=== PATIENT | male | born 1955 | race Caucasian/White ===

== ENCOUNTER → 2016-12-06 | Outpatient (REF) | payer MEDICARE, OTHER ==
[~2016-12-06] MED LIST: /DULO30CA PO; /FEXO18TA PO; /PANT40TA PO; /WARF5TA OR; ACET65TA OR; ALBU17IN2 INH; ALLO300T2 PO; ASPI1TAB24 PO; ASPI81TA83 PO; ASPI81TA85 PO; Aleve PO; BENI20TA3 PO; COLC0.6T34 PO; COUM1TAB17 PO; COUM2.5T11 PO; DULE200A INH; DULO1CAP2 PO; FLOM5CAP PO; FOLI1TAB86 PO; GABA300C2 PO; GABA300C3 PO; GABA600T3 PO; LACT10SO15 PO; LACTSOL16 XX; LEVO25TA5 PO; LEVOPOW21 OR; LEVOTAB10 PO; METH2.5T PO; MULT1TAB10 PO; MULTCAP11 PO; NAPR500T2 PO; PERC5TAB8 OR; PROBCAP4 PO; PROC2.5C PR; PROT1TAB2 PO; Preparation H TOP; REST0.05 OU; TAMS0.4C PO; TRAM50TA2 PO; VIAG100T PO; VITA200038 PO; ZYLO300T4 PO; [UNRECOGNIZED DRUG - CODE] PO; allegra OR; gabapentin OR; proctosol PR; restasis OU; tramadol OR
[2016-12-06 12:50] LABS: URIC ACID 6.4 MG/DL (3.5-7.2)
[2016-12-06 13:11] LABS: FOLATE > 24.0 NG/ML (>5.4); VITAMIN B12 LEVEL 832 PG/ML (247-911)
== END ==
LOC: M LAB REF 11:51
PROVIDERS: ATTEND Internal Medicine
DX: M10.9 Gout, unspecified (principal); M60.9 Myositis, unspecified

== ENCOUNTER → 2017-04-18 | Outpatient (CLI) | payer MEDICARE, BC, OTHER ==
[~2017-04-18] VITALS: Ht 180.3 cm; Wt 108.9 kg
[~2017-04-18] MED LIST changes: +ASPI-161 PO; +ASPI1TAB PO; -ASPI1TAB24 PO; +BENI20TA18 PO; -BENI20TA3 PO; +BENI40TA28 PO; -COUM2.5T11 PO; +COUM2.5T17 PO; +GABA-282 PO; -GABA300C3 PO; -NAPR500T2 PO; +NAPR500T3 PO; +NS 1,000 ML IV ONE; +PROPOFOL 200 MG/20 ML VIAL As Ordered ONE
--- NOTE | 2017-04-18 11:33 | ROOR ---
Patient Name: Parrish Rodriguez Procedure Date: 04/18/2017 10:57 AM Date of : 1955 Age: 61 Room: [facility] Gender: Male Note Status: Finalized Procedure: Total Colonoscopy to Cecum Indications: Screening for colorectal malignant neoplasm Providers: Deangelo Patel MD Referring MD: KELSEY MIX JR, MD Requesting Provider: Medicines: Monitored Anesthesia Care Complications: No immediate complications. Procedure: Pre-Anesthesia Assessment: - The heart rate, respiratory rate, oxygen saturations, blood pressure, adequacy of pulmonary ventilation, and response to care were monitored throughout the procedure. The Colonoscope was introduced through the anus and advanced to the cecum, identified by appendiceal orifice and ileocecal valve. The colonoscopy was performed without difficulty. The patient tolerated the procedure well. The quality of the bowel preparation was excellent. Findings: The perianal and digital rectal examinations were normal. Non-bleeding internal hemorrhoids were found during retroflexion. The hemorrhoids were small and Grade I (internal hemorrhoids that do not prolapse). The exam was otherwise without abnormality on direct and retroflexion views. Impression: - Non-bleeding internal hemorrhoids. - The examination was otherwise normal on direct and retroflexion views. - No specimens collected. - The exam was otherwise normal to the cecum. Recommendation: - Patient has a contact number available for emergencies. The signs and symptoms of potential delayed complications were discussed with the patient. Return to normal activities tomorrow. Written discharge instructions were provided to the patient. - High fiber diet. - Discharge patient to home. - Continue present medications. - Repeat colonoscopy in 10 years for screening purposes. - Return to referring physician. - The findings and recommendations were discussed with the patient's family. Deangelo Patel MD Deangelo Patel MD 04/18/2017 11:33:10 AM This report has been signed electronically. Number of Addenda: 0 Note Initiated On: 04/18/2017 10:57 AM Estimated Blood Loss: Estimated blood loss: none.
[2017-04-18 12:14] VITALS: BP 138/81
== END | disposition home or self-care (01) ==
LOC: M OPP 09:59
PROVIDERS: ATTEND Internal Medicine Gastroenterology
DX: Z12.11 Encounter for screening for malignant neoplasm of colon (principal); K64.0 First degree hemorrhoids; I10 Essential (primary) hypertension; M10.9 Gout, unspecified; E03.9 Hypothyroidism, unspecified; R12 Heartburn; M19.90 Unspecified osteoarthritis, unspecified site; M25.60 Stiffness of unspecified joint, not elsewhere classified; G62.9 Polyneuropathy, unspecified; G47.30 Sleep apnea, unspecified; R06.83 Snoring; R06.02 Shortness of breath; C85.90 Non-Hodgkin lymphoma, unspecified, unspecified site; Z92.21 Personal history of antineoplastic chemotherapy; Z92.3 Personal history of irradiation; Z80.9 Family history of malignant neoplasm, unspecified; Z79.82 Long term (current) use of aspirin; Z79.899 Other long term (current) drug therapy

== ENCOUNTER → 2017-12-15 | Outpatient (REF) | payer MEDICARE, BC, OTHER ==
[2017-12-15 14:04] LABS: URIC ACID 5.4 MG/DL (3.5-7.2)
[2017-12-15 14:10] LABS: FOLATE 17.4 NG/ML; VITAMIN B12 LEVEL > 2000 PG/ML
== END ==
LOC: M LAB REF 13:36
DX: D64.9 Anemia, unspecified (principal); M10.9 Gout, unspecified
CPT/HCPCS: 82746

== ENCOUNTER → 2018-06-18 | Outpatient (REF) | payer MEDICARE, BC, OTHER ==
[2018-06-18 18:56] LABS: CORTISOL AM 8.8 UG/DL (4.3-22.4)
[2018-06-18 19:54] LABS: OSMOLALITY URINE 291 MOSM/KG (500-800)
[2018-06-18 20:25] LABS: OSMOLALITY SERUM 284 MOSM/KG (280-301)
== END ==
LOC: M LAB REF 16:56
DX: E87.1 Hypo-osmolality and hyponatremia (principal); I10 Essential (primary) hypertension
CPT/HCPCS: 83930

== ENCOUNTER 2018-08-31 06:09 | Emergency (ER) | payer MEDICARE, BC, OTHER ==
[2018-08-31 06:35] LABS: BASO # 0.1 10^3/uL (0.0-0.2); BASO % 0.4 % (0.0-1.0); EOS % 0.2 % (0.0-3.0); HEMATOCRIT 43.8 % (42.0-52.0); IMMATURE GRANULOCYTE % 0.5 % (0-3.0); LYMPH # 1.3 10^3/uL (1.5-4.5); LYMPH % 9.7 % (24.0-44.0); MEAN CORPUSCULAR HEMOGLOBIN 33.5 pg (27.0-33.0); MEAN CORPUSCULAR HGB CONC 34.2 g/dl (32.0-36.5); MEAN CORPUSCULAR VOLUME 97.8 fl (80.0-96.0); MONO # 0.5 10^3/uL (0.0-0.8); MONO % 3.9 % (0.0-5.0); NEUTROPHILS % 85.3 % (36.0-66.0); PLATELET COUNT, AUTOMATED 301 10^3/uL (150-450); RED BLOOD COUNT 4.48 10^6/uL (4.30-6.10); RED CELL DISTRIBUTION WIDTH 12.8 % (11.5-14.5); WHITE BLOOD COUNT 12.9 10^3/uL (4.0-10.0)
[2018-08-31] MEDS: NS 1,000 ML IV ×2 (06:55→07:16)
[2018-08-31] MEDS: MORPHINE 4 MG/ML 1ML VIAL/SYRINGE (J2270) IV ×2 (07:16→07:46)
[2018-08-31] MEDS: ONDANSETRON 4MG/2ML VIAL (J2405) IV (07:16)
[2018-08-31 07:18] LABS: ALBUMIN 4.3 GM/DL (3.2-5.2); ALBUMIN/GLOBULIN RATIO 1.08 (1.00-1.93); ALKALINE PHOSPHATASE 113 U/L (45-117); ALT/SGPT 78 U/L (12-78); ANION GAP 14 MEQ/L (8-16); AST/SGOT 64 U/L (7-37); BILIRUBIN,DIRECT 0.1 MG/DL (0.0-0.2); BILIRUBIN,TOTAL 0.5 MG/DL (0.2-1.0); BLOOD UREA NITROGEN 33 MG/DL (7-18); CALCIUM LEVEL 9.1 MG/DL (8.8-10.2); CARBON DIOXIDE LEVEL 17 MEQ/L (21-32); CHLORIDE LEVEL 106 MEQ/L (98-107); CPK CREATINE PHOSPHOKINASE 356 U/L (39-308); CREATININE FOR GFR 1.59 MG/DL (0.70-1.30); GLOMERULAR FILTRATION RATE 46.9 (>49); GLUCOSE, FASTING 153 MG/DL (70-100); LIPASE 145 U/L (73-393); MB/CK RELATIVE INDEX 1.18 (< OR =4); SODIUM LEVEL 137 MEQ/L (136-145); TOTAL PROTEIN 8.3 GM/DL (6.4-8.2); TROPONIN I < 0.02 NG/ML (< 0.10)
[2018-08-31] MEDS ORDERED: ISOVUE-370 76% 100ML VIAL (Q9967) As Ordered (07:26)
[2018-08-31] MEDS: NS 500 ML IV (08:18)
[2018-08-31 09:55] LABS: KETONE, URINE AUTO RFX NEGATIVE (NEGATIVE); MUCUS, URINE RFX SMALL (NEGATIVE); NITRITE, URINE AUTO RFX NEGATIVE (NEGATIVE); RBC, URINE AUTO RFX 3 /HPF (0-3); SPECIFIC GRAVITY UR AUTO RFX 1.053 (1.002-1.035); SQUAM EPITHELIAL CELL UR AURFX 0 /HPF (0-6)
[2018-08-31 10:30] LABS: LEUKOCYTE ESTERASE UR AUTO RFX 3+ (NEGATIVE); WBC, URINE AUTO RFX 48 /HPF (0-3)
[2018-08-31] MEDS: GABAPENTIN 300 MG CAP PO (12:24)
[2018-08-31 13:40] LABS: ANION GAP 9 MEQ/L (8-16); BLOOD UREA NITROGEN 28 MG/DL (7-18); CALCIUM LEVEL 7.9 MG/DL (8.8-10.2); CARBON DIOXIDE LEVEL 23 MEQ/L (21-32); CHLORIDE LEVEL 109 MEQ/L (98-107); CREATININE FOR GFR 1.17 MG/DL (0.70-1.30); GLOMERULAR FILTRATION RATE > 60.0 (>49); GLUCOSE, FASTING 107 MG/DL (70-100); POTASSIUM SERUM 4.1 MEQ/L (3.5-5.1); SODIUM LEVEL 141 MEQ/L (136-145)
== END 2018-08-31 14:17 | disposition home or self-care (01) ==
LOC: M ED 06:09
DX: R11.2 Nausea with vomiting, unspecified (principal); R19.7 Diarrhea, unspecified; K76.0 Fatty (change of) liver, not elsewhere classified; K59.00 Constipation, unspecified; R10.814 Left lower quadrant abdominal tenderness; Z85.72 Personal history of non-Hodgkin lymphomas; Z92.3 Personal history of irradiation; E07.9 Disorder of thyroid, unspecified; I10 Essential (primary) hypertension; G62.9 Polyneuropathy, unspecified; J30.89 Other allergic rhinitis; Z79.899 Other long term (current) drug therapy; Z79.82 Long term (current) use of aspirin; Z79.1 Long term (current) use of non-steroidal anti-inflammatories (NSAID)
CPT/HCPCS: J2270

== ENCOUNTER 2019-04-05 10:11 | Outpatient (RCR) | payer MEDICARE, BC, OTHER ==
[~2019-04-05 10:11] MED LIST changes: -/DULO30CA PO; -/PANT40TA PO; -/WARF5TA OR; -ASPI1TAB PO; +ASPI81TA26 PO; +COUM1TAB17 OR; +CYMB1CAP5 PO; +FLOM0.4C39 PO; -FLOM5CAP PO; -GABA-282 PO; +GABA-843 PO; +NAPR-885 PO; -NAPR500T3 PO; -NS 1,000 ML IV ONE; -PROPOFOL 200 MG/20 ML VIAL As Ordered ONE; -ZYLO300T4 PO; +ZYLO300T6 PO
== END 2019-04-07 ==
LOC: M PT 10:11
PROVIDERS: ATTEND Psychiatry & Neurology Neurology
DX: G62.9 Polyneuropathy, unspecified (principal)

== ENCOUNTER → 2019-05-08 | Outpatient (RCR) | payer MEDICARE, BC, OTHER ==
[~2019-05-08] MED LIST changes: -DULO1CAP2 PO; +DULO1CAP5 PO
== END ==
LOC: M PT 04-16 10:42
PROVIDERS: ATTEND Psychiatry & Neurology Neurology
DX: Z51.89 Encounter for other specified aftercare (principal); G62.9 Polyneuropathy, unspecified

== ENCOUNTER 2019-05-16 10:44 | Outpatient (RCR) | payer MEDICARE, BC, OTHER ==
[2019-06-04] MEDS ORDERED: LEVO75TA4 PO (11:00)
[2019-06-04] MEDS ORDERED: MULTCAP PO (11:00)
[2019-06-04] MEDS ORDERED: MAGN400T2 PO (11:01)
[2019-06-04] MEDS ORDERED: CBD OIL PO (11:02)
== END 2019-06-08 ==
LOC: M PT 10:44
PROVIDERS: ATTEND Psychiatry & Neurology Neurology
DX: Z51.89 Encounter for other specified aftercare (principal); G62.9 Polyneuropathy, unspecified

== ENCOUNTER → 2019-08-30 | Outpatient (REF) | payer MEDICARE, OTHER ==
[~2019-08-30] MED LIST changes: +CBD OIL PO; +LEVO75TA4 PO; +MAGN400T2 PO; +MULTCAP PO; +PROV108A INH
== END ==
LOC: M LAB REF 12:19
PROVIDERS: ATTEND Internal Medicine
DX: M10.9 Gout, unspecified (principal)

== ENCOUNTER → 2021-04-30 | Outpatient (CLI) | payer MEDICARE, BC, OTHER ==
[~2021-04-30] MED LIST changes: +E-Z-GAS II EFFERVESCENT PACKET (SODIUM BICARB./CITRIC ACID/SIMETHICONE) As Ordered ONE; +E-Z-HD 98% w/w 340GM SUSP BTL As Ordered ONE; +E-Z-PAQUE 96% w/w SUSP 176GM BTL As Ordered ONE; +GABA-282 PO; -GABA-843 PO; +MULT-90 PO; +PROBCAP14 PO; +VITA200012 PO
--- NOTE | 2021-04-30 17:10 | REP ---
INDICATION: EARLY SATIETY BLOATING. COMPARISON: None. TECHNIQUE: The procedure was performed under the direct supervision of Dr. Kam. The images were reviewed with Dr. Kam. Liquid barium and gas producing crystals were given in the erect position as well as liquid barium in the prone oblique position in order to perform a double contrast upper GI examination. A combination of fluoroscopy, spot films and last image hold technology was utilized. 0.9 minutes of fluoro time was utilized for this procedure. FINDINGS: The dock clerk film shows no organomegaly or pathological masses. The intestinal gas pattern is non-specific. The oral and pharyngeal stages of deglutition are unremarkable. Esophageal transport is prompt and efficient and there is no esophagitis, stricture, mucosal ring or hiatal hernia. Gastroesophageal reflux is not demonstrated on this examination. There is residual ingested material in the stomach which limits evaluation. The stomach is grossly normal. The stomach boo are normally aligned. There is no evidence of gastritis neoplasm or ulcer disease. The duodenal boo are normally outlined. The mucosal folds are smooth and regular. There is no duodenitis pancreatitis peptic ulcer disease or neoplasm. There is a small diverticulum in the descending portion of the duodenum. The visualized portion of the proximal small bowel appears normal in course and caliber. IMPRESSION: There is residual ingested material in the stomach which limits evaluation. There is a small diverticulum in the descending portion of the duodenum. Otherwise, unremarkable double contrast upper GI examination. <Electronically signed by Nicolás Matos > 04/30/21 1641 <Electronically signed by Karson Kam > 04/30/21 1701
== END ==
LOC: M RAD 07:28
PROVIDERS: ATTEND Internal Medicine
DX: R68.81 Early satiety (principal); R14.0 Abdominal distension (gaseous)

== ENCOUNTER → 2023-11-22 | Outpatient (REF) | payer MEDICARE, OTHER ==
[~2023-11-22] MED LIST changes: +ALBU6.7H6 INH; +ALLO300T2; -ASPI-161 PO; +ASPI-615 PO; -BENI20TA18 PO; -BENI40TA28 PO; +DULO1CAP6; -E-Z-GAS II EFFERVESCENT PACKET (SODIUM BICARB./CITRIC ACID/SIMETHICONE) As Ordered ONE; -E-Z-HD 98% w/w 340GM SUSP BTL As Ordered ONE; -E-Z-PAQUE 96% w/w SUSP 176GM BTL As Ordered ONE; +OLME-1 PO; +OLME-2 PO; -PROV108A INH
== END ==
LOC: M LAB REF 16:30
PROVIDERS: ATTEND Podiatrist
DX: L03.031 Cellulitis of right toe (principal)

== ENCOUNTER → 2024-04-24 | Outpatient (CLI) | payer MEDICARE, BC | LOC: M PLAIMG 07:28 | PROVIDERS: ATTEND Internal Medicine | DX: R06.89 Other abnormalities of breathing (principal) ==

== ENCOUNTER → 2024-09-17 | Outpatient (CLI) | payer MEDICARE, BC ==
[~2024-09-17] MED LIST changes: +GABA-1172 PO; -GABA-282 PO
== END ==
LOC: M WUC 14:16
PROVIDERS: ATTEND Internal Medicine
DX: R05.9 Cough, unspecified (principal)

== ENCOUNTER → 2024-09-27 | Outpatient (CLI) | payer MEDICARE, BC ==
[~2024-09-27] MED LIST changes: +ISOVUE-370 76% 100ML VIAL As Ordered ONE
== END ==
LOC: M RAD 13:04
PROVIDERS: ATTEND Internal Medicine
DX: C85.99 Non-Hodgkin lymphoma, unspecified, extranodal and solid organ sites (principal); R91.8 Other nonspecific abnormal finding of lung field; R06.00 Dyspnea, unspecified; R55 Syncope and collapse
CPT/HCPCS: 71275; Q9967

== ENCOUNTER → 2024-10-28 | Outpatient (REF) | payer MEDICARE, BC ==
[~2024-10-28] MED LIST changes: -ISOVUE-370 76% 100ML VIAL As Ordered ONE
== END ==
LOC: M LAB REF 15:10
PROVIDERS: ATTEND Internal Medicine Pulmonary Disease
DX: R91.8 Other nonspecific abnormal finding of lung field (principal)

== ENCOUNTER → 2024-11-06 | Outpatient (CLI) | payer MEDICARE, BC | LOC: M PLAIMG 13:49 | PROVIDERS: ATTEND Internal Medicine Pulmonary Disease | DX: R91.8 Other nonspecific abnormal finding of lung field (principal); I25.10 Atherosclerotic heart disease of native coronary artery without angina pectoris ==

== ENCOUNTER → 2024-11-18 | Outpatient (CLI) | payer MEDICARE, BC | LOC: M PLARAD 14:56 | PROVIDERS: ATTEND Internal Medicine Pulmonary Disease | DX: R91.8 Other nonspecific abnormal finding of lung field (principal) | CPT/HCPCS: 78815; A9552 ==

== ENCOUNTER → 2024-12-23 | Outpatient (CLI) | payer MEDICARE, BC ==
[~2024-12-23] MED LIST changes: +LIDOCAINE 1% MDV 20ML VIAL As Ordered ONE
[2024-12-23 09:09] VITALS: TEMP 97.6
[2024-12-23 09:43] VITALS: BP 162/87; O2SAT 98
== END ==
LOC: M IRPRO 09:03
PROVIDERS: ATTEND Internal Medicine Pulmonary Disease
DX: R91.8 Other nonspecific abnormal finding of lung field (principal); R59.0 Localized enlarged lymph nodes

== ENCOUNTER → 2025-05-19 | Outpatient (CLI) | payer MEDICARE, BC ==
[~2025-05-19] MED LIST changes: -FLOM0.4C39 PO; -LIDOCAINE 1% MDV 20ML VIAL As Ordered ONE; +TAMS-18 PO
== END ==
LOC: M PLARAD 09:41
PROVIDERS: ATTEND Specialist
DX: C83.38 Diffuse large B-cell lymphoma, lymph nodes of multiple sites (principal)
CPT/HCPCS: 78815; A9552